=== PATIENT | male | born 1990 | race Caucasian/White ===

== ENCOUNTER → 2019-09-18 | Outpatient (CLI) | payer OTHER ==
--- NOTE | 2019-09-18 14:04 | NUR ---
IN FOR AN ACTH STIM TEST. IV PLACED IN RAC. BASELINE, 30 MIN, AND 60 MIN. CORTISOL LEVELS DRAWN PER PROTOCOL. PATIENT TOLERATED WELL. REMOVED IV AND DISMISSED IN GOOD CONDIITON.
[2019-09-19 13:08] LABS: CORTISOL 30 MIN 26.1 ug/dL (Not Estab.); CORTISOL 60 MIN 27.1 ug/dL (Not Estab.); CORTISOL BASELINE 6.2 ug/dL (())
== END ==
LOC: OPONC 09:08
PROVIDERS: ATTEND Internal Medicine
DX: E27.40 Unspecified adrenocortical insufficiency (principal)
CPT/HCPCS: 95113